=== PATIENT | female | born 1960 | race Two or more races ===

== ENCOUNTER 2021-08-08 13:19 | Emergency (ER) | payer OTHER ==
[~2021-08-08] VITALS: Ht 154.9 cm; Wt 86.2 kg
--- NOTE | 2021-08-08 13:38 | NUR ---
TO ER BED 9, C/O NAUSEA AND VOMITING SINCE LAST NIGHT AFTER EATING BREAD, ALSO FEELS GASSY BUT DENIES ABDOMINAL PAIN, AAOX3, BREATHING EVEN AND NON LABORED, AWAITING MD FOSTER
[2021-08-08] MEDS ORDERED: IV NS 0.9% 1,000 ML BAG IV ONE (15:00)
[2021-08-08] MEDS ORDERED: ONDANSETRON HCL/PF 4 MG/2 ML VIAL IVP ONE (15:00)
[2021-08-08] MEDS ORDERED: ONDANSETRON HCL/PF 4 MG/2 ML VIAL ONE (15:07)
--- NOTE | 2021-08-08 15:34 | NUR ---
RFA #20G S/L PATENT & INTACT. BLOOD COLLECTED AND GIVEN TO LAB
--- NOTE | 2021-08-08 15:34 | NUR ---
RFA #20G S/L PATENT & INTACT. BLOOD COLLECTED AND GIVEN TO LAB
[2021-08-08 16:40] LABS: BASOPHILS % (AUTO) 0.3 % (0.0-2.0); HEMATOCRIT 37 % (33-45); HEMOGLOBIN 12.2 g/dL (11.5-14.8); LYMPHOCYTES # (AUTO) 0.9 K/uL (0.8-4.8); LYMPHOCYTES % (AUTO) 9.7 % (20.0-44.0); MEAN CORPUSCULAR HGB CONC 33 g/dl (31.0-36.0); MEAN CORPUSCULAR VOLUME 86 fL (82-100); MONOCYTES # (AUTO) 0.2 K/uL (0.1-1.30); MONOCYTES % (AUTO) 1.8 % (2.0-12.0); NEUTROPHILS # (AUTO) 8.2 K/uL (1.8-8.9); NEUTROPHILS % (AUTO) 88.2 % (43.0-81.0); PLATELET COUNT (AUTO) 225 K/uL (150-450); RED BLOOD CELL COUNT(AUTO) 4.32 MIL/uL (4.0-5.2); WHITE BLOOD COUNT (AUTO) 9.3 K/uL (4.3-11.0)
[2021-08-08 17:22] LABS: ALANINE AMINOTRANSFERASE 20 U/L (12-78); ALBUMIN 3.8 g/dL (3.4-5.0); ALKALINE PHOSPHATASE 75 U/L (46-116); ASPARTATE AMINOTRANSFERASE 18 U/L (15-37); BILIRUBIN,DIRECT 0.2 mg/dL (0.0-0.2); BILIRUBIN,TOTAL 0.6 mg/dL (0.2-1.0); CALCIUM, SERUM 9.2 mg/dL (8.5-10.1); CARBON DIOXIDE 28 mmol/L (21-32); CHLORIDE 106 mmol/L (98-107); CREATININE 0.7 mg/dL (0.6-1.3); GLUCOSE 100 mg/dL (74-106); LIPASE 60 U/L (73-393); POTASSIUM 4.6 mmol/L (3.5-5.1); SODIUM SERUM 143 mmol/L (136-145); TOTAL PROTEIN, SERUM 7.7 g/dL (6.4-8.2); UREA NITROGEN, BLOOD 11 mg/dL (7-18)
--- NOTE | 2021-08-08 17:43 | NUR ---
PT TAKEN TO CT VIA [facility]
--- NOTE | 2021-08-08 17:43 | NUR ---
PT TAKEN TO CT VIA [facility]
--- NOTE | 2021-08-08 17:49 | NUR ---
PT RETURNED TO ER BED [address] [facility]IA [facility]
--- NOTE | 2021-08-08 17:49 | NUR ---
PT RETURNED TO ER BED [address] [facility]IA [facility]
[2021-08-08] MEDS ORDERED: MECLIZINE HCL 12.5 MG TABLET PO ONE (18:00)
[2021-08-08] MEDS ORDERED: MECLIZINE HCL 25 MG TABLET ONE (18:08)
[2021-08-08] MEDS ORDERED: ONDA4TAB11 PO (18:21)
[2021-08-08] MEDS ORDERED: MECL-159 PO (18:21)
--- NOTE | 2021-08-08 18:49 | NUR ---
The patient is alert and oriented x4. Denies pain. In room air and denies SOB. Respiration regular and unlabored. Denies n/v. Denies dizziness. IV removed. Catheter intact and site benign. Pressure and 4x4 applied to site. No bleeding noted.Patient discharged to home in stable condition. Written and verbal after care instructions given. Patient verbalizes understanding of instruction.
[2021-08-08 18:51] VITALS: BP 121/81
== END 2021-08-08 18:51 | disposition home or self-care (01) ==
LOC: ER 13:25 → EDSEX 13:25 → ER 18:51
DX: A05.9 Bacterial foodborne intoxication, unspecified (principal); R11.2 Nausea with vomiting, unspecified; R51.9 Headache, unspecified; R42 Dizziness and giddiness
CPT/HCPCS: 36415; 70450; 80048; 80076; 83690; 84484; 85025; 96361; 96374; 99284; J2405; J7030; J8597

== ENCOUNTER 2021-10-30 12:42 | Inpatient (IN) | payer OTHER ==
[~2021-10-30] VITALS: Ht 152.4 cm; Wt 38.6 kg
[~2021-10-30 12:42] MED LIST: MECL-159 PO; ONDA4TAB11 PO
--- NOTE | 2021-10-30 13:14 | NUR ---
BIBBROTHER C/O DIZZINESS SINCE LAST NIGHT AGGAVATED WHEN EYES ARE OPEN- SUROUNDING IS SPINNING VERBALIZED. AMBULATORY AAOX4.
[2021-10-30] MEDS ORDERED: ONDANSETRON HCL/PF 4 MG/2 ML VIAL IV ONE (14:00)
--- NOTE | 2021-10-30 14:10 | NUR ---
AT BED SIDE
--- NOTE | 2021-10-30 14:15 | NUR ---
BLOOD DRAWN AND SENT TO LAB
[2021-10-30] MEDS ORDERED: ONDANSETRON HCL/PF 4 MG/2 ML VIAL ONE (14:19)
[2021-10-30] MEDS ORDERED: IV NS 0.9% 500 ML BAG IV ONE (14:30)
[2021-10-30] MEDS ORDERED: MECLIZINE HCL 12.5 MG TABLET PO ONE (14:30)
[2021-10-30] MEDS ORDERED: MECLIZINE HCL 25 MG TABLET ONE (14:38)
[2021-10-30 14:40] LABS: BASOPHILS % (AUTO) 0.5 % (0.0-2.0); HEMATOCRIT 39 % (33-45); HEMOGLOBIN 12.5 g/dL (11.5-14.8); LYMPHOCYTES # (AUTO) 0.5 K/uL (0.8-4.8); LYMPHOCYTES % (AUTO) 4.9 % (20.0-44.0); MEAN CORPUSCULAR HGB CONC 32 g/dl (31.0-36.0); MEAN CORPUSCULAR VOLUME 85 fL (82-100); MONOCYTES # (AUTO) 0.3 K/uL (0.1-1.30); MONOCYTES % (AUTO) 2.8 % (2.0-12.0); NEUTROPHILS # (AUTO) 9.1 K/uL (1.8-8.9); NEUTROPHILS % (AUTO) 91.8 % (43.0-81.0); PLATELET COUNT (AUTO) 217 K/uL (150-450); RED BLOOD CELL COUNT(AUTO) 4.56 MIL/uL (4.0-5.2); WHITE BLOOD COUNT (AUTO) 9.9 K/uL (4.3-11.0)
[2021-10-30 14:49] LABS: CREATININE 0.6 mg/dL (0.6-1.3); POTASSIUM 3.9 mmol/L (3.5-5.1)
[2021-10-30] MEDS ORDERED: ASPIRIN 325 MG TABLET PO ONE (16:00)
[2021-10-30] MEDS ORDERED: IOHEXOL-350 100 ML VIAL IV ONE (16:49)
[2021-10-30] MEDS ORDERED: MAG HYDROX/AL HYDROX/SIMETH 30 ML UDC PO PRN (17:00)
[2021-10-30] MEDS ORDERED: ACETAMINOPHEN 325 MG TABLET PO PRN (17:00)
[2021-10-30] MEDS ORDERED: MAGNESIUM HYDROXIDE 30 ML UDC PO PRN (17:00)
[2021-10-30] MEDS ORDERED: HYDROCODONE/APAP 5/325MG TABLET PO PRN (17:00)
[2021-10-30] MEDS ORDERED: ONDANSETRON HCL/PF 4 MG/2 ML VIAL IVP PRN (17:00)
[2021-10-30] MEDS ORDERED: ZOLPIDEM TARTRATE 5 MG TABLET PO PRN (17:00)
[2021-10-30] MEDS ORDERED: Z GUARD REMEDY 4 OZ OINT TP PRN (17:00)
[2021-10-30] MEDS ORDERED: IV NS 0.9% 1,000 ML IV PRN (17:00)
--- NOTE | 2021-10-30 17:04 | NUR ---
PATIENT WENT FOR CT BRAIN AND CAROTID VIA [facility]
--- NOTE | 2021-10-30 17:40 | NUR ---
CALLED NURSING SUP REGARDING PT BED
--- NOTE | 2021-10-30 17:45 | NUR ---
ECHOCARDIOGRAM TECH. AT BED SIDE
--- NOTE | 2021-10-30 19:59 | NUR ---
PT AMBULATED TO BATHROOM WITH ASSISTANCE , STEADY GAIT NOTED. PT RECONNECTED TO MONITOR. RESTING COMFORTABLY IN BED. PT DENIES ANY PAIN AT THIS TIME. WILL CONTINUE TO MONITOR
--- NOTE | 2021-10-30 19:59 | NUR ---
RECIEVED REPORT FROM ELADIO ANN FOR BRITT
[2021-10-30] MEDS ORDERED: ASPIRIN 325 MG TABLET ONE (20:03)
[2021-10-30] MEDS ORDERED: DIAZEPAM 2 MG TABLET PO PRN (20:30)
--- NOTE | 2021-10-30 20:39 | NUR ---
REPORT GIVEN TO ANNETTE ANN FOR BRITT
--- NOTE | 2021-10-30 20:42 | NUR ---
DIRECTOR ORACLE DATABASE NOTES RECEIVED REPORT FROM MARISSA GERARD. AWAITING FOR PATIENT ARRIVAL TO UNIT
[2021-10-30 21:00] VITALS: BP 135/68
--- NOTE | 2021-10-30 21:00 | NUR ---
INSTRUMENTS SALES REPRESENTATIVE NOTES PATIENT ARRIVED ON UNIT, ACCOMPANIED BY ER STAFF; PATIENT AWAKE, A/OX4, BREATHING EVEN AND UNLABORED; ON ROOM AIR; PATIENT AMBULATED TO BED WITH ASSISTANCE; L AC #20 INTACT AND PATENT, FLUSHING WELL; NO S/S OF REDNESS OR INFILTRATION NOTED; BELONGINGS CHECKED WITH DURALUMIN MECHANIC AND PATIENT AT BEDSIDE; TELE MONITOR CONNECTED TO PATIENT, READING SINUS RHYTHM 60S; SKIN IS INTACT; PATIENT VERBALIZED SHE HAS NO MEDICAL OR SURGICAL HISTORIES TO REPORT AND IS FULLY VACCINATED; PATIENT ORIENTED TO UNIT AND TO STAFF; SAFETY PRECAUTIONS IMPLEMENTED; BED LOCKED IN LOW POSITION; SIDE RAILSX2; CALL LIGHT WITHIN REACH; PATIENT INSTRUCTED TO USE CALL LIGHT DURING THE NIGHT IF SHE NEEDS ASSISTANCE USING THE RESTROOM; PATIENT VERBALIZED UNDERSTANDING; WILL CONT TO MONITOR
--- NOTE | 2021-10-30 22:10 | NUR ---
TRACING LATHE SET UP OPERATOR NOTES TELE MONITOR SINUS PHILIPPE 40S, PATIENT AWAKE, A/OX4, PATIENT VERBALIZED HER HEART RATE IS SOMETIMES LOW WHEN SHE IS SLEEPY/SLEEPING; CHARGE NURSE MADE AWARE; WILL CONT TO MONITOR
[2021-10-31] VITALS: BP 115/48
[2021-10-31 04:00] VITALS: BP 103/53
[2021-10-31 06:43] LABS: BASOPHILS % (AUTO) 0.6 % (0.0-2.0); EOSINOPHILS % (AUTO) 0.6 % (0.0-6.0); HEMATOCRIT 34 % (33-45); HEMOGLOBIN 11.3 g/dL (11.5-14.8); LYMPHOCYTES # (AUTO) 1.5 K/uL (0.8-4.8); LYMPHOCYTES % (AUTO) 21.9 % (20.0-44.0); MEAN CORPUSCULAR HGB CONC 33 g/dl (31.0-36.0); MEAN CORPUSCULAR VOLUME 84 fL (82-100); MONOCYTES # (AUTO) 0.4 K/uL (0.1-1.30); MONOCYTES % (AUTO) 5.9 % (2.0-12.0); NEUTROPHILS # (AUTO) 4.8 K/uL (1.8-8.9); PLATELET COUNT (AUTO) 199 K/uL (150-450); RED BLOOD CELL COUNT(AUTO) 4.06 MIL/uL (4.0-5.2); WHITE BLOOD COUNT (AUTO) 6.7 K/uL (4.3-11.0)
[2021-10-31 07:20] LABS: CALCIUM, SERUM 8.6 mg/dL (8.5-10.1); CREATININE 0.7 mg/dL (0.6-1.3); MAGNESIUM 2.2 mg/dL (1.8-2.4); POTASSIUM 3.6 mmol/L (3.5-5.1)
[2021-10-31] MEDS ORDERED: PANTOPRAZOLE 40 MG TABLET.DR PO SCH (07:30)
--- NOTE | 2021-10-31 07:34 | NUR ---
RN OPENING NOTE- PATIENT ASLEEP, EASILY AWAKENED, A/OX4, BREATHING EVEN AND NON-LABORED; ON ROOM AIR L AC #20 INTACT NO S/S OF REDNESS OR INFILTRATION NOTED; TELE MONITOR CONNECTED TO PATIENT, READING SINUS RHYTHM 58; SKIN IS INTACT, SAFETY PRECAUTIONS IMPLEMENTED; BED LOCKED IN LOW POSITION; SIDE RAILSX2; CALL LIGHT WITHIN REACH; WILL CONT TO MONITOR / ASSIST
--- NOTE | 2021-10-31 07:37 | NUR ---
EVENT SET UP SPECIALIST CLOSING NOTES PATIENT RESTING IN BED, A/OX4, BREATHING EVEN AND UNLABORED; TOLERATING ROOM AIR WELL; NO DISTRESS NOTED AT THIS TIME; PATIENT DENIES PAIN; PATIENT ABLE TO MAKE NEEDS KNOWN; TELE MONITOR READS SINUS PHILIPPE - SINUS RHYTHM, PATIENT HAS L AC #20 INTACT AND PATENT, FLUSHING WELL; NO S/S OF REDNESS OR INFILTRATION NOTED; ALL NEEDS RENDERED; SAFETY PRECAUTIONS IMPLEMENTED; BED LOCKED IN LOW POSITION; SIDE RAILSX2, CALL LIGHT WITHIN REACH; WILL ENDORSE BRITT TO ONCOMING SHIFT
[2021-10-31 08:00] VITALS: BP 109/63
[2021-10-31 08:15] LABS: THYROID STIMULATING HORMONE 0.679 uIU/mL (0.358-3.74)
[2021-10-31 16:00] VITALS: BP 125/72
--- NOTE | 2021-10-31 18:39 | NUR ---
WIRE SPLICER NOTE- PT DC AT THIS TIME INTO CARE OF FRIEND. VS STABLE, NEEDS M,ET, DC PLANNING AND AFTER CARE REVIEWED W PT AND UNDERSTOOD. IV SITE DC'D, WRISTBAND REMOVED, ESCORTED OFF UNIT BY STAFF.
== END 2021-10-31 18:30 | disposition home or self-care (01) | DRG 111 ==
LOC: ER 13:17 → TELE 20:21 → MED 10-31 17:09
PROVIDERS: ADMIT Nurse Practitioner Acute Care; ATTEND Nurse Practitioner Acute Care
DX: H81.10 Benign paroxysmal vertigo, unspecified ear (principal); R64 Cachexia; E44.0 Moderate protein-calorie malnutrition; Z68.1 Body mass index [BMI] 19.9 or less, adult; R94.31 Abnormal electrocardiogram [ECG] [EKG]; Z96.651 Presence of right artificial knee joint; F41.9 Anxiety disorder, unspecified
CPT/HCPCS: 36415; 70450-TC; 70496-TC; 70498-TC; 71045-TC; 80048-TC; 83735-TC; 84100-TC; 84443-TC; 84484-TC; 85025-TC; 87081-TC; 93307-TC; C9803; G0378; J2405; J7030; J8597; Q9967

== ENCOUNTER 2022-05-30 22:03 | Emergency (ER) | payer OTHER ==
[~2022-05-30] VITALS: Ht 152.4 cm; Wt 42.2 kg
--- NOTE | 2022-05-30 22:46 | NUR ---
BIBFAMILY C/O FEELING DIZZY AND NAUSEATED SINCE THE MORNING. PT AWAKE AND ALERT X4 AMBULATES WITH STEADY GAIT. PLACED ON MONITOR AND V/S WNL
[2022-05-30] MEDS ORDERED: ONDANSETRON HCL/PF 4 MG/2 ML VIAL ONE (22:57)
[2022-05-30] MEDS ORDERED: MECLIZINE HCL 25 MG TABLET ONE (22:57)
[2022-05-30] MEDS ORDERED: ONDANSETRON HCL/PF 4 MG/2 ML VIAL IVP ONE (23:00)
[2022-05-30] MEDS ORDERED: MECLIZINE HCL 12.5 MG TABLET PO ONE (23:00)
--- NOTE | 2022-05-30 23:03 | NUR ---
20G IV STARTED AT . BLOOD DRAWN AND SENT TO LAB
[2022-05-30 23:06] LABS: BASOPHILS % (AUTO) 0.6 % (0.0-2.0); EOSINOPHILS % (AUTO) 0.6 % (0.0-6.0); HEMATOCRIT 35 % (33-45); HEMOGLOBIN 11.4 g/dL (11.5-14.8); LYMPHOCYTES % (AUTO) 26.3 % (20.0-44.0); MEAN CORPUSCULAR HGB CONC 33 g/dl (31.0-36.0); MEAN CORPUSCULAR VOLUME 84 fL (82-100); MONOCYTES # (AUTO) 0.5 K/uL (0.1-1.30); MONOCYTES % (AUTO) 6.5 % (2.0-12.0); NEUTROPHILS # (AUTO) 5.1 K/uL (1.8-8.9); PLATELET COUNT (AUTO) 251 K/uL (150-450); RED BLOOD CELL COUNT(AUTO) 4.12 MIL/uL (4.0-5.2); WHITE BLOOD COUNT (AUTO) 7.8 K/uL (4.3-11.0)
[2022-05-30 23:32] LABS: CALCIUM, SERUM 9.1 mg/dL (8.5-10.1); CARBON DIOXIDE 29 mmol/L (21-32); CHLORIDE 106 mmol/L (98-107); CREATININE 0.8 mg/dL (0.6-1.3); GLUCOSE 102 mg/dL (74-106); POTASSIUM 3.6 mmol/L (3.5-5.1); SODIUM SERUM 142 mmol/L (136-145); UREA NITROGEN, BLOOD 11 mg/dL (7-18)
[2022-05-30 23:39] LABS: ALANINE AMINOTRANSFERASE 25 U/L (12-78); ALBUMIN 3.6 g/dL (3.4-5.0); ALKALINE PHOSPHATASE 87 U/L (46-116); ASPARTATE AMINOTRANSFERASE 25 U/L (15-37); BILIRUBIN,DIRECT 0.1 mg/dL (0.0-0.2); BILIRUBIN,TOTAL 0.4 mg/dL (0.2-1.0); TOTAL PROTEIN, SERUM 7.5 g/dL (6.4-8.2)
[2022-05-31] MEDS ORDERED: MECL-159 PO (00:55)
[2022-05-31 01:06] LABS: BILIRUBIN,URINE NEGATIVE (NEGATIVE); COLOR,URINE YELLOW (YELLOW); LEUKOCYTE ESTERASE ,URINE NEGATIVE (NEGATIVE); NITRITE, URINE NEGATIVE (NEGATIVE); PROTEIN,URINE NEGATIVE (NEGATIVE); UGLUCOSE NEGATIVE (NEGATIVE); UROBILINOGEN,URINE 0.2 EU/dL (0.2)
--- NOTE | 2022-05-31 01:51 | NUR ---
Patient discharged to home in stable condition. Written and verbal after care instructions given. Patient verbalizes understanding of instruction.IV removed. Catheter intact and site benign. Pressure and 4x4 applied to site. No bleeding noted.
[2022-05-31 01:52] VITALS: BP 144/69
== END 2022-05-31 01:52 | disposition home or self-care (01) ==
LOC: ER 22:07
DX: R42 Dizziness and giddiness (principal); R11.0 Nausea; Z79.899 Other long term (current) drug therapy
CPT/HCPCS: 99285; 96374; 70450; 71045; 93005; 85025; 80048; 80076; 81003; 36415 ×2; 84484 ×2; 85730; J8597; J2405